=== PATIENT | male | born 1980 | race African-American/Black ===

== ENCOUNTER 2018-02-18 14:28 | Emergency (ER) | payer MEDICAID ==
[~2018-02-18] VITALS: Ht 172.7 cm; Wt 80.0 kg
[~2018-02-18 14:28] MED LIST: ACET1TAB12 PO; AMOX-422 PO; CEPH-571 PO; CLIN-79 PO; HYDR-569 PO; HYDR12.5 PO; HYDR1TAB PO; OMEP20TA5 PO
[2018-02-18] MEDS ORDERED: acetaminophen 325mg tablet PO ONE (15:50)
[2018-02-18] MEDS ORDERED: triamcinolone acetonide 40mg/ml inj IM ONE (15:50)
[2018-02-18] MEDS ORDERED: TRAM50TA2 PO (15:51)
[2018-02-18 16:23] VITALS: BP 132/75
== END 2018-02-18 16:24 | disposition home or self-care (01) ==
LOC: ER 14:28
DX: S46.911A Strain of unspecified muscle, fascia and tendon at shoulder and upper arm level, right arm, initial encounter (principal); M65.311 Trigger thumb, right thumb; E78.00 Pure hypercholesterolemia, unspecified; I10 Essential (primary) hypertension; K21.9 Gastro-esophageal reflux disease without esophagitis; Z88.0 Allergy status to penicillin; Z88.6 Allergy status to analgesic agent; Z79.899 Other long term (current) drug therapy; Z56.0 Unemployment, unspecified; X58.XXXA Exposure to other specified factors, initial encounter; Y93.89 Activity, other specified; Y92.89 Other specified places as the place of occurrence of the external cause; Y99.8 Other external cause status
CPT/HCPCS: 96372; 99283; J3301

== ENCOUNTER 2018-08-24 03:32 | Emergency (ER) | payer MEDICAID ==
[~2018-08-24] VITALS: Ht 172.7 cm; Wt 80.0 kg
[~2018-08-24 03:32] MED LIST changes: -CLIN-79 PO; +CLIN150C8 PO; +ONDA8TAB9 PO
[2018-08-24 03:34] VITALS: BP 142/88
[2018-08-24] MEDS ORDERED: AZIT-63 PO (04:02)
== END 2018-08-24 04:14 | disposition home or self-care (01) ==
LOC: ER 03:32
DX: J32.1 Chronic frontal sinusitis (principal); J20.9 Acute bronchitis, unspecified; E78.00 Pure hypercholesterolemia, unspecified; I10 Essential (primary) hypertension; K21.9 Gastro-esophageal reflux disease without esophagitis; F12.90 Cannabis use, unspecified, uncomplicated; Z56.0 Unemployment, unspecified; Z88.6 Allergy status to analgesic agent; Z88.0 Allergy status to penicillin
CPT/HCPCS: 99283

== ENCOUNTER 2019-06-19 03:54 | Emergency (ER) | payer MEDICAID, OTHER ==
[~2019-06-19] VITALS: Ht 172.7 cm; Wt 79.2 kg
[~2019-06-19 03:54] MED LIST changes: +HYDR-4383 PO; -HYDR-569 PO
[2019-06-19 04:00] VITALS: BP 160/96
[2019-06-19] MEDS ORDERED: acetaminophen 325mg tablet PO ONE (04:30)
[2019-06-19] MEDS ORDERED: cyclobenzaprine 10mg tablet PO ONE (04:30)
[2019-06-19] MEDS ORDERED: LIDOcaine 5% patch TP ONE (04:30)
[2019-06-19] MEDS ORDERED: ketorolac trometh inj. 60 MG/2 ML VIAL IM ONE (04:30)
[2019-06-19] MEDS ORDERED: ACET-812 PO (04:37)
[2019-06-19] MEDS ORDERED: CYCL-1 PO (04:37)
[2019-06-19] MEDS ORDERED: LIDO700A32 TP (04:37)
== END 2019-06-19 04:59 | disposition home or self-care (01) ==
LOC: ER 03:55
DX: M54.5 Low back pain (principal); E78.00 Pure hypercholesterolemia, unspecified; I10 Essential (primary) hypertension; K21.9 Gastro-esophageal reflux disease without esophagitis; F12.90 Cannabis use, unspecified, uncomplicated; Z56.0 Unemployment, unspecified; Z88.0 Allergy status to penicillin; Z98.890 Other specified postprocedural states; Z88.6 Allergy status to analgesic agent; Z79.2 Long term (current) use of antibiotics; Z79.899 Other long term (current) drug therapy
CPT/HCPCS: 96372; 99284; J1885

== ENCOUNTER 2019-07-22 04:35 | Emergency (ER) | payer BC ==
[~2019-07-22] VITALS: Ht 172.7 cm; Wt 77.2 kg
[~2019-07-22 04:35] MED LIST changes: +ACET-812 PO; +CYCL-1 PO; +LIDO700A32 TP
[2019-07-22 04:38] VITALS: BP 136/94
[2019-07-22] MEDS ORDERED: CYCL-1 PO (06:22)
[2019-07-22] MEDS ORDERED: pantoprazole 40mg Tablet.DR PO ONE (06:25)
[2019-07-22] MEDS ORDERED: ketorolac trometh. 30mg/ml inj. IM ONE (06:25)
== END 2019-07-22 07:16 | disposition home or self-care (01) ==
LOC: ER 04:35
DX: M54.6 Pain in thoracic spine (principal); E78.00 Pure hypercholesterolemia, unspecified; I10 Essential (primary) hypertension; K21.9 Gastro-esophageal reflux disease without esophagitis; F12.90 Cannabis use, unspecified, uncomplicated; Z98.890 Other specified postprocedural states; Z56.0 Unemployment, unspecified; Z88.0 Allergy status to penicillin; Z88.6 Allergy status to analgesic agent; Z79.899 Other long term (current) drug therapy
CPT/HCPCS: 96372; 99283; J1885

== ENCOUNTER 2019-12-08 04:27 | Emergency (ER) | payer BC ==
[~2019-12-08] VITALS: Ht 172.7 cm; Wt 79.0 kg
[2019-12-08] MEDS ORDERED: normal saline 1000ML IV soln IVB ONE (04:40)
[2019-12-08] MEDS ORDERED: ondansetron/PF 4mg/2ml inj IV ONE (04:40)
[2019-12-08] MEDS ORDERED: ondansetron 4mg rapidly disintigrating tab PO ONE (04:45)
[2019-12-08 05:14] LABS: CLARITY,URINE CLEAR (Clear); COLOR,URINE STRAW (Yellow); GLUCOSE, URINE NEGATIVE (Neg); KETONES,URINE NEGATIVE (Neg); LEUKOCYTE ESTERASE ,URINE NEGATIVE (Neg); NITRITES, URINE NEGATIVE (Neg); OCCULT BLOOD,URINE NEGATIVE (Neg); PROTEIN,URINE NEGATIVE (Neg); UROBILINOGEN,URINE 0.2 E.U/dL (0.2-1.0)
[2019-12-08 05:16] LABS: UA COLLECTION TYPE CLN CATCH MIDSTREAM
[2019-12-08 05:18] LABS: BASOPHILS # (AUTO) 0.1 X10'3 (0-0.2); BASOPHILS % (AUTO) 1.2 % (0-1); EOSINOPHILS # (AUTO) 0.1 X10'3 (0-0.9); EOSINOPHILS % (AUTO) 1.3 % (0-6); HEMATOCRIT 44.3 % (42.0-52.0); HEMOGLOBIN 14.7 g/dl (14.0-17.9); LYMPHOCYTES # (AUTO) 1.7 X10'3 (1.1-4.8); LYMPHOCYTES % (AUTO) 32.8 % (21-51); MEAN CORPUSCULAR HEMOGLOBIN 27.4 PG (27.0-31.0); MEAN CORPUSCULAR HGB CONC 33.2 g/dL (33.0-36.5); MEAN CORPUSCULAR VOLUME 82.4 FL (78-98); MEAN PLATELET VOLUME 9.7 FL (7.4-10.4); MONOCYTES # (AUTO) 0.5 X10'3 (0-0.9); MONOCYTES % (AUTO) 9.2 % (2-12); NEUTROPHILS # (AUTO) 2.8 X10'3 (1.8-7.7); NEUTROPHILS % (AUTO) 55.5 % (42-75); PLATELET COUNT 161 X10'3 (140-440); RED BLOOD COUNT 5.38 X10'6 (4.70-6.10); RED CELL DISTRIBUTION WIDTH 14.1 % (11.5-14.5); WHITE BLOOD COUNT 5.1 X10'3 (4.5-11.0)
[2019-12-08] MEDS ORDERED: PANT-47 PO (05:23)
[2019-12-08] MEDS ORDERED: ONDA4TAB12 PO (05:23)
[2019-12-08 05:25] LABS: ALANINE AMINOTRANSFERASE 26 U/L (12-78); ALBUMIN 3.6 G/DL (3.4-5.0); ALBUMIN/GLOBULIN RATIO 1.1 (1.1-1.5); ALKALINE PHOSPHATASE 65 IU/L (46-116); ANION GAP 5 (8-16); ASPARTATE AMINO TRANSFERASE 17 U/L (10-37); BILIRUBIN,TOTAL 0.2 MG/DL (0.1-1.0); BLOOD UREA NITROGEN 11 MG/DL (7-18); CALCIUM 8.7 MG/DL (8.5-10.1); CHLORIDE 110 MMOL/L (99-107); GLUCOSE 91 MG/DL (70-104); LIPASE 1170 U/L (73-393); POTASSIUM 3.7 MMOL/L (3.5-5.1); SODIUM 146 MMOL/L (135-145); TOTAL CARBON DIOXIDE 30.9 MMOL/L (24-32); eGFR > 90 ML/MIN
[2019-12-08 05:34] VITALS: BP 150/97
== END 2019-12-08 05:37 | disposition home or self-care (01) ==
LOC: ER 04:28
DX: K21.9 Gastro-esophageal reflux disease without esophagitis (principal); R19.7 Diarrhea, unspecified; R11.2 Nausea with vomiting, unspecified; E78.00 Pure hypercholesterolemia, unspecified; I10 Essential (primary) hypertension; F12.90 Cannabis use, unspecified, uncomplicated; Z98.890 Other specified postprocedural states; Z56.0 Unemployment, unspecified; Z88.0 Allergy status to penicillin; Z88.6 Allergy status to analgesic agent; Z79.899 Other long term (current) drug therapy
CPT/HCPCS: 36415; 80053; 81003; 83690; 85025; 99283

== ENCOUNTER 2023-06-26 00:53 | Emergency (ER) | payer BC, OTHER ==
[~2023-06-26] VITALS: Ht 172.7 cm; Wt 79.5 kg
[~2023-06-26 00:53] MED LIST changes: +CLIN-214 PO; -CLIN150C8 PO; +OMEP20TA43 PO; -OMEP20TA5 PO; +ONDA4TAB12 PO; +PANT-47 PO
[2023-06-26 00:56] VITALS: BP 161/107; PULSE 63; RESP 16; TEMP 98.3; O2SAT 100
== END 2023-06-26 01:52 ==
LOC: ER 00:53
DX: M25.511 Pain in right shoulder (principal); E78.00 Pure hypercholesterolemia, unspecified; I10 Essential (primary) hypertension; K21.9 Gastro-esophageal reflux disease without esophagitis; F12.90 Cannabis use, unspecified, uncomplicated; Z98.890 Other specified postprocedural states; Z56.0 Unemployment, unspecified; Z88.0 Allergy status to penicillin; Z88.6 Allergy status to analgesic agent; Z79.899 Other long term (current) drug therapy
CPT/HCPCS: 74018; 99283

== ENCOUNTER 2024-12-28 10:41 | Emergency (ER) | payer OTHER ==
[~2024-12-28] VITALS: Ht 172.7 cm; Wt 77.0 kg
[~2024-12-28 10:41] MED LIST changes: +ONDA-243 PO; -ONDA4TAB12 PO
[2024-12-28] MEDS: LIDOcaine 2% Viscous 15ml cup MM ONE (11:57)
[2024-12-28] MEDS: dicyclomine 10 MG capsule PO ONE (11:58)
[2024-12-28] MEDS: mag hydrox/Alum hydrox/simeth 30ml oral suspension PO ONE (11:58)
[2024-12-28] MEDS ORDERED: OMEP40CA21 PO (12:05)
[2024-12-28] MEDS ORDERED: DICY20TA17 PO (12:05)
[2024-12-28 12:19] VITALS: BP 128/80; PULSE 68; RESP 16; TEMP 97.8; O2SAT 98
== END 2024-12-28 12:20 | disposition home or self-care (01) ==
LOC: ER 10:42
DX: K21.9 Gastro-esophageal reflux disease without esophagitis (principal); I10 Essential (primary) hypertension; E78.00 Pure hypercholesterolemia, unspecified; F12.90 Cannabis use, unspecified, uncomplicated; Z98.890 Other specified postprocedural states; Z56.0 Unemployment, unspecified; Z88.0 Allergy status to penicillin; Z88.5 Allergy status to narcotic agent; Z79.1 Long term (current) use of non-steroidal anti-inflammatories (NSAID); Z79.899 Other long term (current) drug therapy
CPT/HCPCS: 99284

== ENCOUNTER 2025-06-08 10:07 | Emergency (ER) | payer OTHER ==
[~2025-06-08] VITALS: Ht 172.7 cm; Wt 75.5 kg
[~2025-06-08 10:07] MED LIST changes: +DICY20TA17 PO; +LIDO-52 TP; -LIDO700A32 TP
--- NOTE | 2025-06-08 10:26 | ELECTROCARDIOGRAPH REPORT ---
[facility] Test Date: 2025-06-08 Test Time: 10:25:14 Pat Name: PORTER NICOLE Department: EMERGENCY ROOM Room: Gender: M Syrup Mixer: ELYSE : 1980 Requested By: NIKOS WILSON Order Number: [id number] Reading MD: Measurements Intervals [place] Rate: 62 P: 55 NE: 148 QRS: 90 QRSD: 98 T: -12 QT: 379 QTc: 385 Interpretive Statements Sinus rhythm Anterior infarct, acute (LAD) Lateral leads are also involved Please click the below link to view image of tracing.
[2025-06-08 10:36] LABS: MEAN PLATELET VOLUME 9.1 FL (7.4-10.4); RED CELL DISTRIBUTION WIDTH 13.7 % (11.5-14.5)
--- NOTE | 2025-06-08 10:39 | Physician Documentation ---
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 He reports that over the last three days he has had symptoms of migraine that include blurred vision. He denies nausea or vomiting, chills or fever, chest pain or shortness of breath. He does also note that his blood pressure has been higher than usual for the last couple of days. No medication or intervention for headache today but took Ibuprofen and acetaminophen yesterday. Medication Reconciliation Allergies: Coded Allergies: Penicillins (Verified Allergy, Unknown, 06/08/25) ibuprofen (Verified Allergy, Unknown, 06/08/25) Scheduled Acetaminophen (Tylenol Extra Strength), 2 TABLET PO Q6H Acetaminophen with Codeine (Tylenol with Codeine #3 Tablet), 1 TABLET PO Q6H Amoxicillin/Potassium Clav (Augmentin 875-125 Tablet), 1 EACH PO BID Cephalexin (Keflex), 1 CAP PO QID Clindamycin HCl (Clindamycin HCl CAPSULE), 2 CAP PO TID Cyclobenzaprine* (Cyclobenzaprine*), 1 TAB PO TID Dicyclomine HCl (Dicyclomine HCl), 1 TAB PO Q6H Hydrochlorothiazide (Hydrochlorothiazide), 1 CAP PO DAILY Hydrochlorothiazide (Hydrochlorothiazide), 1 CAP PO DAILY Hydrocodone/Acetaminophen (Vicodin 5-500 Tablet), 1 TAB PO Q6H Lidocaine (Lidoderm), 1 PATCH TP DAILY Omeprazole (Omeprazole), 1 TABLET PO DAILY Pantoprazole Sodium (PROTONIX tablet), 1 TAB PO DAILY Scheduled PRN Cyclobenzaprine* (Cyclobenzaprine*), 1 TABLET PO Q8H PRN for muscle spasms Hydrocodone/Acetaminophen ([place] 5-325 Tablet), 1 TABLET PO TID PRN for pain Hydrocodone/Acetaminophen ([place] 5-325 Tablet), 1 TABLET PO TID PRN for pain ONDANSETRON ODT 4mg tablet (Ondansetron Odt), 1 TABLET PO Q6H PRN for nausea/vomiting Ondansetron (Zofran Odt), 1 TAB PO Q8H PRN for nausea/vomiting Past Medical History Past Medical History: High Cholesterol, Hypertension, GERD Past Surgical History: orthopedic surgeries Alcohol Use: None Drug Use: marijuana Lives with: Other Lives In: Home Occupation: unemployed Review of Systems ROS As stated above in the HPI, otherwise all systems are reviewed and negative. Physical Exam Vital Signs: Temperature: 98.7, Source: Temporal, Heart Rate: 64, Respiratory Rate: 18, BP: 153/106, Pulse Oximetry: 99, Weight: 75.500 Oxygen Flow Rate: 0 Physical Exam General: Alert, no apparent distress. HEENT: PERRL, EOMI, no injection, moist mucous membranes. Neck: Full range of motion. Respiratory: Lungs clear, no respiratory distress. Chest: No accessory muscle use. Cardiovascular: Regular rate and rhythm, no murmurs. Gastrointestinal: Soft, nontender, nondistended. Bowels sounds present. Extremities: Normal range of motion, no deformity. Neurologic: Oriented x4. Cranial nerves II-XII intact to examination. Psychiatric: Normal mood and affect. Skin: Normal color, warm and dry. No edema, no ecchymosis. Progress Progress Note 1058: RN notifies that patient became very agitated after administration of proc hlorperazine even though he was also given diphenhydramine. Patient insisted on leaving AMA and that IV be removed. D/C'd without instructions. Results/Orders Results/Orders Orders - AMBER TORRES TRANSLATOR INTERPRETER Normal Saline 1000ml (Sodium Chloride 10 (06/08/25 10:30) Diphenhydramine Inj (Benadryl Inj.) (06/08/25 11:00) Lorazepam Inj (Ativan Inj) (06/08/25 11:00) Completed Orders - AMBER TORRES TRANSLATOR INTERPRETER Prochlorperazine Inj (Compazine Inj) (06/08/25 10:30) Diphenhydramine Inj (Benadryl Inj.) (06/08/25 10:30) Medications Received in ER Medications (Trade) Dose Ordered Sig/Joaquin Route PRN Reason Start Time Stop Time Status Last Admin Dose Admin (Compazine inj) 10 mg ONCE ONCE IV 06/08/25 10:30 06/08/25 10:31 DC 06/08/25 10:45 10 MG (Benadryl inj.) 25 mg ONCE ONCE IV 06/08/25 10:30 06/08/25 10:31 DC 06/08/25 10:49 25 MG Sodium Chloride 1,000 ml @ 1,000 mls/hr ONCE ONCE IV 06/08/25 10:30 06/08/25 11:29 06/08/25 10:49 1,000 MLS/HR Vital Signs 06/08/25 10:19 Temp 98.7 Pulse 64 Resp 18 B/P (MAP) 153/106 Pulse Ox 99 O2 Flow Rate 0 Laboratory Tests Test 06/08/25 10:28 White Blood Count 5.2 Red Blood Count 5.48 Hemoglobin 15.1 Hematocrit 45.4 Mean Corpuscular Volume 82.9 Mean Corpuscular Hemoglobin 27.6 Mean Corpuscular Hemoglobin Concent 33.3 Red Cell Distribution Width 13.7 Platelet Count 156 Mean Platelet Volume 9.1 Neutrophils (%) (Auto) 64.2 Lymphocytes (%) (Auto) 25.3 Monocytes (%) (Auto) 8.5 Eosinophils (%) (Auto) 1.3 Basophils (%) (Auto) 0.7 Neutrophils # (Auto) 3.3 Lymphocytes # (Auto) 1.3 Monocytes # (Auto) 0.4 Eosinophils # (Auto) 0.1 Basophils # (Auto) 0.0 CBC Comment Sodium Level 142 Potassium Level 3.7 Chloride Level 107 Carbon Dioxide Level 28.5 Anion Gap 7 L Blood Urea Nitrogen 12 Creatinine 0.97 Estimated GFR/1.73 m2 > 90 BUN/Creatinine Ratio 12.4 Glucose Level 86 Calcium Level 8.9 Total Bilirubin 0.6 Aspartate Amino Transf (AST/SGOT) 29 Alanine Aminotransferase (ALT/SGPT) 34 Alkaline Phosphatase 78 Troponin I High Sensitivity 11 Total Protein 7.5 Albumin 3.9 Globulin 3.6 Albumin/Globulin Ratio 1.1 Chemistry Comments Medical Decision Making Differential Dx:Considerations: Include: CHENG-Cluster, CHENG-Migraine, CHENG- Hypertensive, Close head injuyr, CVA, Meningitis, Temporal arteritis, Trigeminal neuralgia Additional Comment Patient had normal neurologic exam. left prior to workup being complete. Departure Disposition: AGAINST MEDICAL ADVICE Impression: Primary Impression: Headache Additional Impression: Benign hypertension Referrals: NO PRIMARY CARE PROVIDER (PCP) Signature Scribe Signature: x Attestation: The note accurately reflects work and decisions made by me.Amber Krishnan NP 06/08/25 10:43 AMBER TORRES NP Jun 08, 2025 10:39
[2025-06-08] MEDS: normal saline 1000ml 1,000 ML IV ONE (10:49)
[2025-06-08 10:59] LABS: CREATININE 0.97 MG/DL (0.60-1.10); TOTAL CARBON DIOXIDE 28.5 MMOL/L (24-32); eCRCL 91 ML/MIN; eGFR > 90 ML/MIN
[2025-06-08 11:05] LABS: PRO BRAIN NATRIURETIC PEPTIDE 41 PG/ML (0-125)
[2025-06-08 11:49] VITALS: BP 157/95; PULSE 54; RESP 18; TEMP 98.7; O2SAT 99
--- NOTE | 2025-06-08 16:08 | RADIOLOGY REPORT ---
CHEST RADIOGRAPH Indication: CP Technique: Single frontal view of the chest was obtained Comparison: None FINDINGS: Lines and Tubes: None Lungs: No focal consolidation. Pleura: No effusion. No pneumothorax. Cardiomediastinal contours: Unremarkable Bones: No acute osseous abnormality. IMPRESSION: No acute cardiopulmonary disease.
== END 2025-06-08 11:15 | disposition left against medical advice (07) ==
LOC: ER 10:08
DX: R51.9 Headache, unspecified (principal); I10 Essential (primary) hypertension; E78.00 Pure hypercholesterolemia, unspecified; F12.90 Cannabis use, unspecified, uncomplicated; Z88.0 Allergy status to penicillin; Z88.6 Allergy status to analgesic agent; Z79.899 Other long term (current) drug therapy; Z56.0 Unemployment, unspecified
CPT/HCPCS: 36415; 71045; 80053; 83880; 84484; 85025; 93005; 96361; 96374; 96375; 99285; J0780; J1200; J7030

== ENCOUNTER 2025-10-22 16:19 | Emergency (ER) | payer OTHER ==
[~2025-10-22] VITALS: Ht 172.7 cm; Wt 76.4 kg
[2025-10-22 16:59] VITALS: BP 146/102; PULSE 60; RESP 16; TEMP 98.4; O2SAT 95
--- NOTE | 2025-10-22 18:22 | Physician Documentation ---
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 Patient repo rts unknown last Tdap. Tetanus within 5 years?: Yes Medication Reconciliation Allergies: Coded Allergies: ibuprofen (Verified Allergy, Unknown, 06/08/25) Scheduled Acetaminophen (Tylenol Extra Strength), 2 TABLET PO Q6H Acetaminophen with Codeine (Tylenol with Codeine #3 Tablet), 1 TABLET PO Q6H Amox Tr/Potassium Clavulanate 875/125 MG (Augmentin 875/125 MG), 1 TAB PO BID Amoxicillin/Potassium Clav (Augmentin 875-125 Tablet), 1 EACH PO BID Cephalexin (Keflex), 1 CAP PO QID Clindamycin HCl (Clindamycin HCl CAPSULE), 2 CAP PO TID Cyclobenzaprine* (Cyclobenzaprine*), 1 TAB PO TID Dicyclomine HCl (Dicyclomine HCl), 1 TAB PO Q6H Hydrochlorothiazide (Hydrochlorothiazide), 1 CAP PO DAILY Hydrochlorothiazide (Hydrochlorothiazide), 1 CAP PO DAILY Hydrocodone/Acetaminophen ([place]icodin 5-500 Tablet), 1 TAB PO Q6H Lidocaine (Lidoderm), 1 PATCH TP DAILY Omeprazole (Omeprazole), 1 TABLET PO DAILY Pantoprazole Sodium (PROTONIX tablet), 1 TAB PO DAILY Scheduled PRN Cyclobenzaprine* (Cyclobenzaprine*), 1 TABLET PO Q8H PRN for muscle spasms Hydrocodone/Acetaminophen ([place] 5-325 Tablet), 1 TABLET PO TID PRN for pain Hydrocodone/Acetaminophen ([place] 5-325 Tablet), 1 TABLET PO TID PRN for pain ONDANSETRON ODT 4mg tablet (Ondansetron Odt), 1 TABLET PO Q6H PRN for nausea/vomiting Ondansetron (Zofran Odt), 1 TAB PO Q8H PRN for nausea/vomiting Past Medical History Past Medical History: High Cholesterol, Hypertension, GERD Past Surgical History: orthopedic surgeries Alcohol Use: None Drug Use: marijuana Lives with: Other Lives In: Home Occupation: unemployed Review of Systems ROS As stated above in the HPI, otherwise all systems are reviewed and negative. Physical Exam Vital Signs: Temperature: 98.4, Source: Oral, Heart Rate: 60, Respiratory Rate: 16, BP: 146/102, Pulse Oximetry: 95, Weight: 76.400 Oxygen Flow Rate: 0 Physical Exam VITALS: Reviewed and as above. GENERAL: Alert, nontoxic appearing, no apparent distress. RESPIRATORY: No increased work of breathing, no respiratory distress, speaking in full clear sentences CV: Brisk capillary refill to fingers of right hand MUSCULOSKELETAL: Strength intact in extension and flexion of all fingers to right hand SKIN: 1 cm laceration avulsion to the palmar aspect of right hand at the base of 3rd finger at the MCP joint, no evidence of joint involvement, no evidence of tendon involvement NEURO: Sensation intact to fingers of right hand Procedures Laceration/Wound Repair Laceration/Wound Repair : Location: Palmar aspect of right hand at base of 2nd finger Length (cm): 1.5 Anesthesia: Lidocaine w/ Epi Volume Anesthetic (mls): 4 Prep: irrigated by nurse Margins: revised (Loosely reapproximated) Foreign Body: not identified Repaired: skin Wound Repaired With: sutures Suture Size/Type: 4-0 Number of Superficial Sutures: 5 Layer Closure?: No Dressing Applied: simple, gauze (Bulky) Splint Applied?: No Sling Applied?: No Tolerated Procedure Well?: yes, no complications Progress Results/Orders Results/Orders Orders - GAGANDEEP TIAN Laceration/I&D Tray Set Up (10/22/25 19:07) Wound Care Orders (10/22/25 19:07) Completed Orders - GAGANDEEP TIAN Amox Tr/Potassium Clavulanate (Augmentin (10/22/25 18:35) Tetanus/Pertuss/Diph Acell/Pf (Boostrix (10/22/25 18:35) Lidocaine 1% W/Epi 1:100,000 (Xylocaine (10/22/25 19:10) Acetaminophen 325mg Tablet (Tylenol Tabl (10/22/25 19:10) Medications Received in ER Medications (Trade) Dose Ordered Sig/Joaquin Route PRN Reason Start Time Stop Time Status Last Admin Dose Admin (Augmentin 875-125mg tablet) 1 tab ONCE ONCE PO 10/22/25 18:35 10/22/25 18:36 DC 10/22/25 19:11 1 TAB (Boostrix vaccine syringe) 0.5 ml ONCE ONCE IMVAC 10/22/25 18:35 10/22/25 18:36 DC 10/22/25 19:10 0.5 ML (Tylenol tablet) 650 mg ONCE ONCE PO 10/22/25 19:10 10/22/25 19:11 DC 10/22/25 19:17 650 MG Vital Signs 10/22/25 16:59 Temp 98.4 Pulse 60 Resp 16 B/P (MAP) 146/102 Pulse Ox 95 O2 Flow Rate 0 Medical Decision Making Additional information obtaine: N/A Findings This 45-year-old male presented with a dog bite to his right hand at the base of the 4th finger on the palmar aspect, physical exam demonstrated an approximately 1-1/2 cm C-shaped laceration with avulsion, reassuringly there was no evidence of tendon joint involvement, and the finger was neurovascularly intact. Due to the avulsion at the base of the finger loose approximation was indicated. Tdap updated, 1st dose antibiotics provided. Patient is otherwise well with remain michael of physical exam benign and patient is appropriate for outpatient follow up. Discharged on course of oral antibiotics. Patient provided home care instructions return to care precautions, and follow up instructions which he verbalized understanding of. Differential Dx:Considerations: Include: Abrasion, Cellulitis, Contusion, Fracture, Laceration, Neurovascular injury, Punture wound, Retained foreign body, Urticaria Departure Time of Disposition: 20:44 Disposition: 01 HOME / SELF CARE / HOMELESS Impression: Primary Impression: Dog bite Qualified Codes: W54.0XXA - Bitten by dog, initial encounter Condition: Improved Discharge Instructions: Animal Bite, Adult Additional Instructions: Keep the area clean dry and covered, wash it gently do not soak the area. Please take the antibiotics as prescribed. You may use as needed for pain as directed by [id number] packaging. Contact animal control on Saturday to inquire if you a rabies vaccine series is needed, at this time I have considered this a low risk bite for rabies as it appears this was a dog bite from a domesticated dog which in this area is considered a low risk exposure. Need to have the wound re-evaluated in seven days for possible suture removal though it may take up to 10 days for the wound to heal enough for the stitches to come ou t. You may return to your choice of medical provider for this evaluation including in urgent care, primary care or this emergency department. Please follow up with your primary care provider in the next few days. Please return to the emergency department for any new or worsening concerning symptoms limited to worsening pain and swelling to the area or if you develop a fever. Referrals: NO PRIMARY CARE PROVIDER (PCP) Prescriptions Amox Tr/Potassium Clavulanate 875/125 MG (Augmentin 875/125 MG) 875 Mg-125 Mg Tablet 1 TAB PO BID for 7 Days, #14 TAB Prov: GAGANDEEP TIAN 10/22/25 Education Educated: Patient Educated regarding: diagnosis, treatment, prognosis, need for follow up Signature Scribe Signature: No scribe Attestation: The note accurately reflects work and decisions made by me.PANTERA Pritchard 10/23/25 01:16 GAGANDEEP TIAN Oct 22, 2025 18:22
[2025-10-22] MEDS: TETanus/Pertussis (Acell)/Diphther VAC/PF (Tdap-Adult) 0.5ml syringe IMVAC ONE (19:10)
[2025-10-22] MEDS: amox tr/potassium clavulanate 875/125mg TAB PO ONE (19:11)
[2025-10-22] MEDS: LIDOcaine 1% W/epiNEPHrine 1:100,000 20ml vial IJ ONE (19:17)
[2025-10-22] MEDS ORDERED: AMOX-580 PO (20:47)
== END 2025-10-22 19:55 | disposition home or self-care (01) ==
LOC: ER 16:19
DX: S61.212A Laceration without foreign body of right middle finger without damage to nail, initial encounter (principal); E78.00 Pure hypercholesterolemia, unspecified; I10 Essential (primary) hypertension; F12.90 Cannabis use, unspecified, uncomplicated; Z88.6 Allergy status to analgesic agent; W54.0XXA Bitten by dog, initial encounter; Y93.89 Activity, other specified; Y92.89 Other specified places as the place of occurrence of the external cause; Y99.8 Other external cause status
CPT/HCPCS: 12001; 90471; 90715; 99283

== ENCOUNTER 2025-11-03 09:16 | Emergency (ER) | payer OTHER ==
[~2025-11-03] VITALS: Ht 172.7 cm; Wt 76.4 kg
[2025-11-03 09:27] VITALS: BP 147/104; PULSE 58; RESP 18; O2SAT 98
--- NOTE | 2025-11-03 09:42 | Physician Documentation ---
History of Present Illness ~ Chief Complaint: Suture Removal Stated Complaint: SUTURE REMOVAL Time Seen by MD: 09:35 Primary Medical Doctor: TOM HPI Patient presents to the ED requesting to have his sutures removed in his right 4th finger. On October 22 he had sutures placed secondary to dog bite. Denies any increased pain or swelling or drainage. wound remains approximated Tetanus Within 5 Years: Yes Medication Reconciliation Allergies: Coded Allergies: ibuprofen (Verified Allergy, Unknown, 11/03/25) Scheduled Acetaminophen (Tylenol Extra Strength), 2 TABLET PO Q6H Acetaminophen with Codeine (Tylenol with Codeine #3 Tablet), 1 TABLET PO Q6H Amoxicillin/Potassium Clav (Augmentin 875-125 Tablet), 1 EACH PO BID Cephalexin (Keflex), 1 CAP PO QID Clindamycin HCl (Clindamycin HCl CAPSULE), 2 CAP PO TID Cyclobenzaprine* (Cyclobenzaprine*), 1 TAB PO TID Dicyclomine HCl (Dicyclomine HCl), 1 TAB PO Q6H Hydrochlorothiazide (Hydrochlorothiazide), 1 CAP PO DAILY Hydrochlorothiazide (Hydrochlorothiazide), 1 CAP PO DAILY Hydrocodone/Acetaminophen ([place] 5-500 Tablet), 1 TAB PO Q6H Lidocaine (Lidoderm), 1 PATCH TP DAILY Omeprazole (Omeprazole), 1 TABLET PO DAILY Pantoprazole Sodium (PROTONIX tablet), 1 TAB PO DAILY Scheduled PRN Cyclobenzaprine* (Cyclobenzaprine*), 1 TABLET PO Q8H PRN for muscle spasms Hydrocodone/Acetaminophen ([place] 5-325 Tablet), 1 TABLET PO TID PRN for pain Hydrocodone/Acetaminophen ([place] 5-325 Tablet), 1 TABLET PO TID PRN for pain ONDANSETRON ODT 4mg tablet (Ondansetron Odt), 1 TABLET PO Q6H PRN for nausea/vomiting Ondansetron (Zofran Odt), 1 TAB PO Q8H PRN for nausea/vomiting Discontinued Medications Amox Tr/Potassium Clavulanate 875/125 MG (Augmentin 875/125 MG), 1 TAB PO BID Discontinued Reason: Auto Discontinued Past Medical History Past Medical History: High Cholesterol, Hypertension, GERD Past Surgical History: orthopedic surgeries Alcohol Use: None Drug Use: marijuana Lives with: Other Lives In: Home Occupation: unemployed Review of Systems All Other Systems at this time: Reviewed and Negative ROS As stated above in the HPI, otherwise all systems are reviewed and negative. Physical Exam Vital Signs: Temperature: 98.3, Source: Oral, Heart Rate: 58, Respiratory Rate: 18, BP: 147/104, Pulse Oximetry: 98, Weight: 76.400 Oxygen Flow Rate: 0 Physical Exam General: Alert, no apparent distress. HEENT: PERRL, EOMI, no injection, moist mucous membranes. Extremities: Normal range of motion,well approximated lac right 4th a anterior aspect finger Neurologic: Oriented x4. Psychiatric: Normal mood and affect. Skin: Normal color, warm and dry. No edema, no ecchymosis. Progress Results/Orders Results/Orders Vital Signs 11/03/25 11/03/25 09:27 09:55 Temp 98.3 98.3 Pulse 58 Resp 18 B/P (MAP) 147/104 Pulse Ox 98 O2 Flow Rate 0 Medical Decision Making Additional information obtaine: old records, N/A Findings sutures removed without difficulty via ED nurse Differential Dx:Considerations: Include: Cellulitis Departure Disposition: HOME / SELF CARE / HOMELESS Impression: Primary Impression: Laceration Condition: Improved Discharge Instructions: Suture Removal, Care After Referrals: NO PRIMARY CARE PROVIDER (PCP) Signature Scribe Signature: h Attestation: Scribed for Jose L Akbar Manager Product by Jose L Akbar - LEXIE . 11/03/25 18:11 JOSE L AKBAR STUDY HALL SUPERVISOR Nov 03, 2025 09:42
[2025-11-03 09:55] VITALS: TEMP 98.3
== END 2025-11-03 10:06 | disposition home or self-care (01) ==
LOC: ER 09:16
DX: S61.214D Laceration without foreign body of right ring finger without damage to nail, subsequent encounter (principal); I10 Essential (primary) hypertension; E78.00 Pure hypercholesterolemia, unspecified; K21.9 Gastro-esophageal reflux disease without esophagitis; F12.90 Cannabis use, unspecified, uncomplicated; Z88.6 Allergy status to analgesic agent; Z79.899 Other long term (current) drug therapy; Z56.0 Unemployment, unspecified; Z98.890 Other specified postprocedural states; W54.0XXD Bitten by dog, subsequent encounter
CPT/HCPCS: 99282

== ENCOUNTER 2025-11-22 13:30 | Emergency (ER) | payer OTHER ==
[2025-11-23] MEDS ORDERED: AMOX-101 PO (08:42)
== END 2025-11-22 13:36 | disposition left against medical advice (07) ==
LOC: ER 13:31
DX: M25.561 Pain in right knee (principal); Z53.21 Procedure and treatment not carried out due to patient leaving prior to being seen by health care provider; Z88.6 Allergy status to analgesic agent

== ENCOUNTER 2025-11-23 08:00 | Emergency (ER) | payer OTHER ==
[~2025-11-23] VITALS: Ht 172.7 cm; Wt 75.4 kg
[2025-11-23 08:06] VITALS: BP 171/111; PULSE 60; TEMP 99.9; O2SAT 99
--- NOTE | 2025-11-23 08:24 | Physician Documentation ---
History of Present Illness General Chief Complaint: Tooth Problem Stated Complaint: DENTAL PAIN Time Seen by MD: 08:23 Primary Medical Doctor: NONE History of Present Illness Initial Comments 45 year old male presents to the emergency department for complaints of dental pain that has been present for two days. Patient states that his right molar has been painful for two days now, in addition to the roof of his mouth being swollen. He states that he has been taking ibuprofen for his pain, though he is allergic to it. Medication Reconciliation Allergies: Coded Allergies: ibuprofen (Verified Allergy, Unknown, 11/23/25) Scheduled Acetaminophen (Tylenol Extra Strength), 2 TABLET PO Q6H Acetaminophen with Codeine (Tylenol with Codeine #3 Tablet), 1 TABLET PO Q6H Amoxicillin/Potassium Clav (Augmentin 875-125 Tablet), 1 EACH PO BID Cephalexin (Keflex), 1 CAP PO QID Clindamycin HCl (Clindamycin HCl CAPSULE), 2 CAP PO TID Cyclobenzaprine* (Cyclobenzaprine*), 1 TAB PO TID Dicyclomine HCl (Dicyclomine HCl), 1 TAB PO Q6H Hydrochlorothiazide (Hydrochlorothiazide), 1 CAP PO DAILY Hydrochlorothiazide (Hydrochlorothiazide), 1 CAP PO DAILY Hydrocodone/Acetaminophen ([place] 5-500 Tablet), 1 TAB PO Q6H Lidocaine (Lidoderm), 1 PATCH TP DAILY Omeprazole (Omeprazole), 1 TABLET PO DAILY Pantoprazole Sodium (PROTONIX tablet), 1 TAB PO DAILY Scheduled PRN Cyclobenzaprine* (Cyclobenzaprine*), 1 TABLET PO Q8H PRN for muscle spasms Hydrocodone/Acetaminophen ([place] 5-325 Tablet), 1 TABLET PO TID PRN for pain Hydrocodone/Acetaminophen ([place] 5-325 Tablet), 1 TABLET PO TID PRN for pain ONDANSETRON ODT 4mg tablet (Ondansetron Odt), 1 TABLET PO Q6H PRN for nausea/vomiting Ondansetron (Zofran Odt), 1 TAB PO Q8H PRN for nausea/vomiting Past Medical History Past Medical History: High Cholesterol, Hypertension, GERD Past Surgical History: orthopedic surgeries Smoking: Non-Smoker Alcohol Use: None Drug Use: marijuana Lives with: Other Lives In: Home Occupation: unemployed Review of Systems All Other Systems at this time: Reviewed and Negative ROS Patient was asked, but denied any other symptoms. All other systems are negative other than those mentioned above. Physical Exam Physical Exam Vital Signs: RN Vital Signs have been reviewed: Yes, Temperature: 99.9, Source: Temporal, Heart Rate: 60, Respiratory Rate: 18, BP: 171/111, Pulse Oximetry: 99, Weight: 75.400 Oxygen Flow Rate: 0 Pulse Oximetry Reflects: adequate oxygenation Physical Exam VITALS: Reviewed and as above. GENERAL: Alert, no apparent distress. HEENT: Patient is missing molar one and two, he has a filling in three and tenderness to the fourth. No fluctuate of gingeral mucosa was appreciated. Normocephalic, atraumatic. PERRL, EOMI. Dry mucosa, no erythema. RESPIRATORY: Lungs clear, normal breath sounds, no respiratory distress. CHEST: No accessory muscle use, no retractions. CV: Regular rate and rhythm. No edema, no murmur, No: JVD GI: Soft, non-tender, bowel sounds present. No rebound, guarding, or rigidity. BACK: No CVA tenderness, no swelling. MUSCULOSKELETAL: No deformities, no edema SKIN: Warm and dry, no rash. NEURO: Oriented x4. No motor or sensory deficit. PSYCH: Normal mood and affect, no agitation. Progress Results/Orders Results/Orders Vital Signs 11/23/25 08:06 Temp 99.9 Pulse 60 Resp 18 B/P (MAP) 171/111 Pulse Ox 99 O2 Flow Rate 0 Departure Time of Disposition: 08:44 Disposition: 01 HOME / SELF CARE / HOMELESS Impression: Primary Impression: Pain, dental Condition: Stable Discharge Instructions: Dental Pain Referrals: NO PRIMARY CARE PROVIDER (PCP) Education Educated: Patient Educated regarding: diagnosis, treatment, need for follow up Signature Scribe Signature: Scribed for Antoine Holly MD by Brad Yeh . 11/23/25 08:45 ANTOINE HOLLY MD Nov 23, 2025 08:24 BRAD JONES Nov 23, 2025 08:45
[2025-11-23] MEDS ORDERED: AMOX-101 PO (08:42)
[2025-11-23 08:53] VITALS: RESP 16
[2025-11-23] MEDS: ketorolac trometh 15mg/ml vial 15 MG/ML ML IM ONE (08:53)
== END 2025-11-23 08:59 | disposition home or self-care (01) ==
LOC: ER 08:00
DX: K08.89 Other specified disorders of teeth and supporting structures (principal); F12.90 Cannabis use, unspecified, uncomplicated; E78.00 Pure hypercholesterolemia, unspecified; I10 Essential (primary) hypertension; K21.9 Gastro-esophageal reflux disease without esophagitis; Z88.6 Allergy status to analgesic agent; Z79.899 Other long term (current) drug therapy; Z56.0 Unemployment, unspecified; Z98.890 Other specified postprocedural states
CPT/HCPCS: 96372; 99283; J1885